=== PATIENT | female | born 1985 | race Caucasian/White ===

== ENCOUNTER 2017-05-27 19:42 | Emergency (ER) | payer MEDICARE ==
[~2017-05-27] VITALS: Ht 162.6 cm; Wt 81.6 kg
[2017-05-27 19:45] VITALS: BP 100/62
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
[2017-05-27 20:32] LABS: ANION GAP 11 mmol/L (5-15); CALCIUM 8.3 MG/DL (8.5-10.1); CARBON DIOXIDE 24 MMOL/L (21-32); CHLORIDE 106 MMOL/L (98-107); CREATININE 0.9 MG/DL (0.55-1.30); GLOMERULAR FILTRATION RATE > 60 mL/min (>60); POTASSIUM 3.7 MMOL/L (3.5-5.1); SODIUM 141 MMOL/L (136-145)
[2017-05-27 20:34] LABS: APPEARANCE,URINE CLEAR; BASOPHILS % (AUTO) 0.4 % (0.0-2.0); EOSINOPHILS % (AUTO) 0.2 % (0.0-3.0); KETONES,URINE 1+ (NEGATIVE); LEUKOCYTE ESTERASE ,URINE 1+ (NEGATIVE); LYMPHOCYTES % (AUTO) 15.7 % (20.0-45.0); MEAN CORPUSCULAR HEMOGLOBIN 30.6 PG (27.0-31.0); MEAN CORPUSCULAR HGB CONC 32.5 G/DL (32.0-36.0); MEAN CORPUSCULAR VOLUME 94 FL (80-99); MEAN PLATELET VOLUME 6.8 FL (6.5-10.1); MONOCYTES % (AUTO) 5.8 % (1.0-10.0); NITRITE,URINE NEGATIVE (NEGATIVE); PH,URINE 6 (4.5-8.0); PLATELET COUNT 267 K/UL (150-450); PROTEIN,URINE 1+ (NEGATIVE); RED BLOOD COUNT 4.52 M/UL (4.20-5.40); RED CELL DISTRIBUTION WIDTH 11.2 % (11.6-14.8); UROBILINOGEN,URINE NORMAL MG/DL (0.0-1.0); WHITE BLOOD COUNT 6.7 K/UL (4.8-10.8)
[2017-05-27 20:36] LABS: ALANINE AMINOTRANSFERASE 19 U/L (12-78); ALBUMIN/GLOBULIN RATIO 0.9 (1.0-2.7); ALCOHOL < 3 mg/dL; ASPARTATE AMINO TRANSFERASE 15 U/L (15-37); TOTAL PROTEIN 6.9 G/DL (6.4-8.2)
[2017-05-27 20:39] LABS: ACETAMINOPHEN < 2 MCG/ML (10-30); BACTERIA,URINE FEW /HPF; RBC,URINE 0-2 /HPF (0 - 2); SQUAMOUS EPITHELIAL CELL,UR FEW /LPF (NONE/OCC)
[2017-05-27 20:45] VITALS: BP 95/62
[2017-05-27 21:45] VITALS: BP 101/67
[2017-05-27 22:45] VITALS: BP 107/64
[2017-05-28 01:14] VITALS: BP 107/65
[2017-05-28 04:05] VITALS: BP 103/70
[2017-05-28 06:24] VITALS: BP 105/69
[2017-05-28 09:30] VITALS: BP 100/75
--- NOTE | 2017-05-28 10:30 | Diagnostic Imaging Report ---
Indication: Shortness of breath Technique: One view of the chest Comparison: none Findings: Lungs and pleural spaces are clear. Heart size is normal. Impression: No acute process
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
[2017-05-28 11:50] VITALS: BP 116/62
--- NOTE | 2017-05-30 16:22 | Cardiology Report ---
APPROVED REPORT EKG Measurement Heart [id number] CT [id number] [id number] Normal sinus rhythm T wave abnormality - consider septal ischemia. Abnormal ECG
== END 2017-05-28 11:50 | disposition home or self-care (01) ==
LOC: EDBD 19:42 → EMR 21:45
DX: T42.4X1A Poisoning by benzodiazepines, accidental (unintentional), initial encounter (principal); T43.591A Poisoning by other antipsychotics and neuroleptics, accidental (unintentional), initial encounter; Y92.89 Other specified places as the place of occurrence of the external cause; F32.9 Major depressive disorder, single episode, unspecified; F41.9 Anxiety disorder, unspecified
CPT/HCPCS: 36415; 71010; 80053; 80307; 81003; 81025; 82550; 85025; 93005; 99284; G0480; 80329